=== PATIENT | female | born 1970 | race Caucasian/White ===

== ENCOUNTER 2018-12-26 09:45 | Emergency (ER) | payer SELFPAY ==
[~2018-12-26] VITALS: Ht 167.6 cm; Wt 87.1 kg
[2018-12-26] MEDS ORDERED: ASPIRIN 81 MG CHEW TAB PO ONE ×2 (10:00→11:00)
[2018-12-26 10:21] LABS: BILIRUBIN,URINE SMALL (NEGATIVE); CLARITY,URINE SL CLOUDY (CLEAR); COLOR,URINE YELLOW (YELLOW); KETONES,URINE NEGATIVE (NEGATIVE); LEUKOCYTE ESTERASE ,URINE NEGATIVE (NEGATIVE); NITRITE,URINE NEGATIVE (NEGATIVE); PROTEIN,URINE DIPSTICK 1+ (NEGATIVE); URINE UROBILINOGEN 0.2 mg/dL (0.2 - 1)
[2018-12-26 10:26] LABS: BASOPHILS % 0.4 % (0.0-1.0); EOSINOPHILS # (AUTO) 0.2 (0.0-0.4); EOSINOPHILS % 3.2 % (0.0-6.0); HEMATOCRIT 42.8 % (34.2-44.1); HEMOGLOBIN 14.6 g/dL (12.0-16.0); LYMPHOCYTES # (AUTO) 1.3 (1.0-3.2); LYMPHOCYTES % 18.3 % (18.0-39.1); MEAN CORPUSCULAR HEMOGLOBIN 30.9 pg (28-32); MEAN CORPUSCULAR HGB CONC 34.1 g/dL (31-35); MEAN CORPUSCULAR VOLUME 90.7 fL (81-99); MONOCYTES # (AUTO) 0.5 (0.2-0.8); MONOCYTES % 7.1 % (4.4-11.3); NEUTROPHILS # (AUTO) 5.1 (2.1-6.9); NEUTROPHILS % 70.4 % (38.7-80.0); PLATELET COUNT 279 x10e3/uL (140-360); RED BLOOD COUNT 4.72 x10e6/uL (3.6-5.1); RED CELL DISTRIBUTION WIDTH 13.7 % (11.7-14.4)
[2018-12-26 10:38] LABS: ALANINE AMINOTRANSFERASE 41 IU/L (0-55); ALBUMIN 3.8 g/dL (3.5-5.0); ALKALINE PHOSPHATASE 105 IU/L (40-150); ANION GAP 14.1 mmol/L (8-16); BACTERIA,URINE FEW /HPF; BLOOD UREA NITROGEN 7 mg/dL (7-26); BUN/CREATININE RATIO 9 (6-25); CALCIUM 9.3 mg/dL (8.4-10.2); CARBON DIOXIDE 22 mmol/L (22-29); CHLORIDE 104 mmol/L (98-107); CREATINE KINASE 26 IU/L (29-168); EPITHELIAL CELLS,URINE MANY /LPF; EST GLOMERULAR FILTRATION RATE > 60 ML/MIN (60-); GLUCOSE 151 mg/dL (74-118); POTASSIUM 3.1 mmol/L (3.5-5.1); SODIUM 137 mmol/L (136-145)
[2018-12-26 10:40] LABS: INR 0.92; PROTHROMBIN TIME 12.8 seconds (11.9-14.5)
[2018-12-26 10:41] LABS: PARTIAL THROMBOPLASTIN TIME 31.1 seconds (23.8-35.5)
[2018-12-26] MEDS ORDERED: BELLADONNA ALK/PHENOBARBITAL 5 ML UDC PO STA (10:48)
[2018-12-26] MEDS ORDERED: SODIUM CHLORIDE 0.9% 1000ML 1,000 ML IV STA (10:48)
[2018-12-26] MEDS ORDERED: PANTOPRAZOLE 40 MG 10ML VIAL IV STA (10:48)
[2018-12-26] MEDS ORDERED: MAGNESIUM/ALUMINUM/SIMETHICONE 30 ML UDC PO ONE (11:00)
[2018-12-26] MEDS ORDERED: LIDOCAINE VISC 2% SOLN 15 ML UDC PO ONE (11:00)
--- NOTE | 2018-12-26 11:51 | Diagnostic Imaging Report ---
EXAMINATION: CHEST SINGLE (NOT PORTABLE) INDICATION: Chest pain COMPARISON: None FINDINGS: TUBES and LINES: None. LUNGS: The lungs are moderately inflated. No focal consolidation or pulmonary edema. PLEURA: No pleural effusion or pneumothorax. HEART AND MEDIASTINUM: The cardiomediastinal silhouette is unremarkable. BONES AND SOFT TISSUES: No fracture or dislocation. Soft tissues are unremarkable. UPPER ABDOMEN: No free air under the diaphragm. IMPRESSION: No acute thoracic abnormality. Signed by: Aarti Ramirez MD on 12/26/2018 11:48 AM
--- NOTE | 2018-12-26 12:28 | NUR ---
PATIENT BROUGHT BACK TO TRIAGE FOR RE-EVALUATING. MENTIONED THAT SHE TOOK SOME ECTASY LAST NIGHT
--- NOTE | 2018-12-26 12:33 | NUR ---
DR. ROSA EVALUATING PATIENT IN TREATMENT ROOM
[2018-12-26] MEDS ORDERED: KETOROLAC TROMETHAMINE 30 MG/ML VIAL IV STA (12:51)
[2018-12-26] MEDS ORDERED: SODIUM CHLORIDE 0.9% 1000ML 1,000 ML ONE (15:11)
[2018-12-26] MEDS ORDERED: BELLADONNA ALK/PHENOBARBITAL 5 ML UDC ONE (15:11)
[2018-12-26] MEDS ORDERED: LIDOCAINE VISC 2% SOLN 15 ML UDC ONE (15:11)
[2018-12-26] MEDS ORDERED: MAGNESIUM/ALUMINUM/SIMETHICONE 30 ML UDC ONE (15:11)
[2018-12-26] MEDS ORDERED: ASPIRIN 81 MG CHEW TAB ONE (15:12)
[2018-12-26] MEDS ORDERED: PANTOPRAZOLE 40 MG 10ML VIAL ONE (15:13)
[2018-12-26 19:25] VITALS: BP 100/65
== END 2018-12-26 19:28 | disposition home or self-care (01) ==
LOC: ER 09:45
DX: R07.89 Other chest pain (principal); E87.6 Hypokalemia; K52.9 Noninfective gastroenteritis and colitis, unspecified
CPT/HCPCS: 36415; 71045; 80053; 81001; 82550; 82553; 83880; 84484; 85025; 85610; 85730; 93005; 99283; C9113; J1885; J7030